=== PATIENT | female | born 1965 | race Caucasian/White ===

== ENCOUNTER 2025-07-25 13:03 | Emergency (ER) | payer MEDICAID ==
[~2025-07-25] VITALS: Ht 167.6 cm; Wt 73.0 kg
[2025-07-25 13:06] VITALS: TEMP 36.8; O2SAT 99
[2025-07-25] MEDS: ONDANSETRON 4MG ODT PO ONE (13:30)
[2025-07-25] MEDS: MAGNESIUM/ALUMINUM HYDROXIDE/SIMETHICONE 30ML UDC PO ONE (13:30)
[2025-07-25] MEDS: FAMOTIDINE 20MG TABLET PO ONE (13:30)
[2025-07-25 13:59] LABS: HEMATOCRIT. 42.0 % (36.0-48.0); HEMOGLOBIN. 14.7 g/dL (12.0-16.0); MEAN PLATELET VOLUME 8.0 fl (7.4-10.4); PLATELET 244 x1000/uL (130-400); RED BLOOD CELL COUNT 4.70 mill/uL (4.2-5.4); RED CELL DISTRIBUTION WIDTH 13.7 % (11.6-14.6)
[2025-07-25] MEDS: CHLORDIAZEPOXIDE 25MG CAPSULE PO ONE (14:00)
[2025-07-25 14:12] LABS: CREATININE 0.6 mg/dL (0.6-1.0); UREA NITROGEN BLOOD 15 mg/dL (9-23)
[2025-07-25 14:14] LABS: ASPARTATE AMINOTRANSFERASE 34 IU/L (<34); BILIRUBIN DIRECT 0.9 mg/dL (<=3.0); BILIRUBIN TOTAL 3.1 mg/dL (0.1-1.0); PROTEIN TOTAL 7.6 g/dL (6.0-8.3)
[2025-07-25 14:37] LABS: LYMPHOCYTES % MANUAL 8.0 % (20.0-60.0); MONOCYTES % MANUAL 3.0 % (2.0-8.0); NEUTROPHILS % MANUAL 89.0 % (45.0-75.0); PLATELET ESTIMATE NORMAL
[2025-07-25] MEDS ORDERED: ONDA-239 PO (15:55)
[2025-07-25] MEDS: CLONIDINE 0.1MG TABLET PO ONE (16:30)
[2025-07-25 16:36] VITALS: BP 188/118; PULSE 97; RESP 20; O2SAT 99
== END 2025-07-25 16:52 | disposition home or self-care (01) ==
LOC: ER 13:03
DX: F10.239 Alcohol dependence with withdrawal, unspecified (principal); F41.9 Anxiety disorder, unspecified; I10 Essential (primary) hypertension; Y90.0 Blood alcohol level of less than 20 mg/100 ml
CPT/HCPCS: 80076; 80048; 80320; 83690; 85025; 36415; 99284; Q0162; G0480